=== PATIENT | male | born 1980 | race Caucasian/White ===

== ENCOUNTER 2020-10-16 11:19 | Outpatient (NON) | payer OTHER, SELFPAY ==
[2020-10-17 20:04] LABS: SARS-CoV-2 RNA PCR Positive
== END 2020-10-16 11:20 ==
PROVIDERS: Visit Provider Family Medicine Adolescent Medicine
DX: U07.1 COVID-19 (principal)
CPT/HCPCS: 87635; C9803; U0003

== ENCOUNTER 2021-11-29 15:25 | Emergency (ER) | payer OTHER, SELFPAY ==
--- NOTE | ~2021-11-29 | XR_ITS ---
EXAMINATION: XR finger 5th RT min 2V INDICATION: Right fifth finger pain, initial encounter TECHNIQUE: Three views of the right fifth finger are obtained. COMPARISON: None available FINDINGS: There is an acute, traumatic, comminuted tuft fracture of the fifth distal phalanx. Given t he appearance of the fracture, open fracture should be considered. There is also a questionable fract ure at the dorsomedial base of the fifth distal phalanx extending to the distal interphalangeal joint . There is soft tissue swelling of the fifth finger. IMPRESSION: 1. Comminuted, possibly open, tuft fracture of the fifth distal phalanx. Possible tiny fracture at th e dorsomedial base of the fifth distal phalanx. Reviewed, dictated and finalized at location [facility] [employer] IMPRESSION: 1. Comminuted, possibly open, tuft fracture of the fifth distal phalanx. Possib le tiny fracture at the dorsomedial base of the fifth distal phalanx.
[2021-11-29 15:27] VITALS: BP 160/89; PULSE 84; RESP 16; TEMP 36.3; O2SAT 98
--- NOTE | 2021-11-29 16:17 | ED.GENADULT ---
HPI - General Adult General Chief complaint: Wound/Laceration Stated complaint: finger lac Time Seen by Provider: 11/29/21 15:43 Source: patient Mode of arrival: ambulatory Limitations: no limitations History of Present Illness HPI narrative: Patient presents for evaluation of injury to the fifth digit of the right hand. He indicates he was at a drive-through around 1330 today. When he picked his food up he realized he was missing some food. He attempted to walk into the establishment but the doors were locked. He walked back up to the drive-through window and got into a verbal altercation with the employee. The employee attempted to close the window. Patient attempted to intervene and got the fifth digit of his right hand caught in the window. Reports of bleeding from the digit. States that his pain is moderate in severity, without descriptive quality. He reports a tingling sensation in the affected digit. Date of last tetanus 10 years ago. He is not diabetic. He does not smoke. Related Data Home Medications Medication Instructions Recorded Confirmed lisinopril 11/29/21 Allergies Allergy/AdvReac Type Severity Reaction Status Date / Time No Known Allergies Allergy Verified 11/29/21 15:26 Review of Systems Review of Systems: CONSTITUTIONAL: Denies fever, chills, or sweats. EYES: Denies visual changes, redness, or discharge. ENT: Denies rhinorrhea, congestion, sore throat, or otalgia. CARDIOVASCULAR: Denies chest pain, palpitations, or edema. RESPIRATORY: Denies cough or dyspnea. GASTROINTESTINAL: Denies abdominal pain, nausea, vomiting, or diarrhea. GENITOURINARY: Denies dysuria or hematuria. SKIN: Reports wound to the fifth digit of the right hand. Denies rash or itching. MUSCULOSKELETAL: Reports pain in the fifth digit of the right hand NEUROLOGIC: Denies headache, numbness, dizziness, or weakness. PSYCHIATRIC: Denies anxiety or depression. [facility] Past Medical History Medical History (Updated 11/29/21 @ 18:19 by Rahul Waggoner, OSMIN, JER[place]) Hypertension Surgical History Surgical History History of appendectomy Family History Family History Mother No pertinent past medical history Social History Social History (Updated 11/29/21 @ 16:21 by Rahul Waggoner, [facility], ) Smoking status: Never smoker Alcohol intake: current Alcohol use details: social Substance use: never Living arrangements: with family Gender identity (if verbalized by the patient): Male Sexual Orientation (if Verbalized by the Patient): Straight or Heterosexual Spiritual care concerns: No Exam Narrative: GENERAL: Well-appearing, well-nourished, and in no acute distress. HEAD: Normocephalic, atraumatic. EYES: PERRLA and EOMI. ENT: Nares clear, no rhinorrhea or epistaxis. Mucous membranes moist. Oropharynx without tonsillar hypertrophy exudate or other lesions. Bilateral TMs pearly vital nonbulging NECK: Supple. No adenopathy or masses. No carotid bruits or JVD CHEST: Clear to auscultation. No respiratory distress. No wheezes rales or rhonchi HEART: Regular rate and rhythm. No murmur heard. Normal peripheral pulses. ABDOMEN: Soft, nontender, nondistended, normal active bowel sounds. EXTREMITIES: Normal range of motion. No edema. SKIN: There is a 1.5 cm linear laceration to the palmar aspect of the distal phalanx of the fifth digit of the right hand with exposed fat tissue. Nailplate of 5th digit of right hand is partially avulsed from base of nailbed. There is an approximately 1.2 cm laceration extending from the base of the nailplate of the 5th digit of the dorsal apect of right hand extending proximally. There is avulsion of dermis surrounding this laceration. NEURO: No focal deficits. Alert and oriented x3. PSYCH: Normal mood and affect. Course Course Emergency Course: This is a
[2021-11-29] MEDS: LIDOCAINE HCL 1% LOCAL INJ 20 ML VIAL 10 ML INFILTRATE (18:21)
[2021-11-29] MEDS: TETANUS,DIPHTHERIA,AC PERTUSSIS ADULT (0.5 ML) BOOSTRIX IM (18:21)
[2021-11-29] MEDS: NEOMYCIN/POLYMYXIN/BACITRACIN OINTMENT 15 GM TUBE 1 APPLIC TOPICAL (18:33)
== END 2021-11-29 18:33 | disposition home or self-care (01) ==
PROVIDERS: Emergency Provider Nurse Practitioner; PCP Family Medicine Adolescent Medicine
DX: S62.666B Nondisplaced fracture of distal phalanx of right little finger, initial encounter for open fracture (principal); Z23 Encounter for immunization; I10 Essential (primary) hypertension; W23.0XXA Caught, crushed, jammed, or pinched between moving objects, initial encounter
CPT/HCPCS: 12002; 29130; 73140; 90471; 90715; 99284; A9270

== ENCOUNTER 2025-01-12 00:53 | Day surgery (SDC) | payer OTHER, SELFPAY ==
[2025-01-05 14:58] VITALS: BMI 40.3
--- OUTSIDE RECORDS SUMMARY | 2025-01-12 00:55 | XMS_ITS | Clinical Summary ---
Author Organization [facility] [facility] Address [address] [place] [id number] Care Team Providers Care Bridge Maintainer Name Role Phone Morales Pearl MD Primary Care Provider [phone] Social History Tobacco Use Types Packs/Day Years Used Date Smoking Tobacco: Never Assessed Sex and Gender Information Value Date Recorded Sex Assigned at Not on file Legal Sex Male 9:49 PM CDT Gender Identity Not on file Sexual Orientation Not on file Plan of Treatment Health Maintenance Due Date Last Done Comments DTAP/TDAP/TD VACCINES (1 - Tdap) 2000 HEPATITIS B VACCINES (1 of 3 - 19+ 3-dose series) 2000 INFLUENZA VACCINE (#1) 2024 HPV VACCINES Aged Out No longer eligi ble based on patient's age to complete this topic PNEUMOCOCCAL VACCINE 0-49 YEARS Aged Out No longer eligible based on patient's age to complete this topic Care Teams Bridge Maintainer Relationship Specialty Start Date End Date Morales Pearl MD [address] [id number] PCP - General Family Practice 10/13/18
[2025-01-12 12:11] VITALS: BP 158/87; PULSE 62; RESP 18; TEMP 36.4; O2SAT 100
[2025-01-12 12:13] VITALS: BMI 40.4
[2025-01-12] MEDS: LACTATED RINGERS 1,000 ML 150 ML IV CONT (12:30)
--- NOTE | 2025-01-12 12:31 | WPDANESEPPF ---
Anes - Initial Pre Proc Eval Procedure: Operation Date: 01/12/25 13:30 Proposed Procedures p Esophagogastroduodenoscopy - Stephen Garcia MD Date/Time: 01/12/25 12:31 Surgeon: Stephen Garcia MD Pre Op Diagnosis: Heartburn, Right upper quadrant pain, Melena Patient Data Age: 44 Gender: M Height: 1.73 m Weight: 120.7 kg Last Vital Signs Temp 97.6 F 01/12/25 12:11 Pulse 62 01/12/25 12:11 Resp 18 01/12/25 12:11 BP 158/87 H 01/12/25 12:11 Pulse Ox 100 01/12/25 12:11 O2 Del Method Room Air 01/12/25 12:11 Allergies Allergy/AdvReac Type Severity Reaction Status Date / Time No Known Allergies Allergy Verified 01/12/25 12:09 Home Medications ?Medication ?Instructions ?Recorded ?Confirmed ?Type lisinopril 40 mg tablet 40 mg PO DAILY #90 tabs 10/22/24 01/12/25 Rx omeprazole 40 mg capsule,delayed 40 mg PO DAILY 8 weeks #56 caps 01/02/25 01/12/25 Rx release atorvastatin 40 mg tablet (Lipitor) 40 mg PO QHS #90 tabs 01/12/25 01/12/25 Rx Patient hx anesthesia problems: none Family hx anesthesia problems: none Results Review: All pre-operative results and documents have been reviewed as part of the pre-operative evaluation. [facility] Past Medical History Medical History Hypertension Surgical History Surgical History History of appendectomy Family History Family History Mother No pertinent past medical history Social History Social History Smoking status: Never smoker Second hand tobacco smoke exposure: No Alcohol intake: current Alcohol use details: social Substance use: never Substance use type: does not use Lack of Transportation: No Lack of Food: Never True Current Housing: I Have Housing Concerned About Future Housing: No Difficulty Paying Gas/Electric Bills: No Difficulty Paying for Meds: No Currently Unemployed: No Education: Associate Degree Difficulty w/ Childcare or Family Care: No Living arrangements: with family Occupation/Education: occupation Gender identity (if verbalized by the patient): Male Sexual Orientation (if Verbalized by the Patient): Straight or Heterosexual Spiritual care concerns: No Anes - Eval Final PreProcedure Day of Procedure 01/12/25 12:31 Patient weight: obese Lungs: normal air movement Airway: Mallampati scale class II Neurological: alert and oriented Last oral intake: >/= 8 hours ASA classification: III Emergent: no Anesthetic plan: proceed Anesthesia type and monitoring: general GIVS and standard monitoring Results Review: All pre-operative results and documents have been reviewed as part of the pre-operative evaluation. HTN, hyperlipidemia, preDM, pt w RUQ pain for EGD. Informed Consent: The patient's anesthetic plan and its attendant risks and benefits were discussed with the patient/family/POA. Questions were solicited and answers provided to the satisfaction of the patient/family/POA.
--- NOTE | 2025-01-12 13:24 | PM.HPGS ---
History of Present Illness History of Present Illness Consent: Risks, benefits, and alternatives have been discussed and questions answered. Patient agrees to proceed with procedure. Chief complaint: Heartburn, Right upper quadrant pain, Melena Narrative: Zach Andrade Jr. is a 44 year old male with intermittent ruq, recent cbc and cmp no major findings. Here for first EGD. Review of Systems Review of Systems: All systems reviewed & are unremarkable except as noted in HPI and below PMFSH Past Medical History Medical History Hypertension Surgical History Surgical History History of appendectomy Family History Family History Mother No pertinent past medical history Social History Social History Smoking status: Never smoker Second hand tobacco smoke exposure: No Alcohol intake: current Alcohol use details: social Substance use: never Substance use type: does not use Lack of Transportation: No Lack of Food: Never True Current Housing: I Have Housing Concerned About Future Housing: No Difficulty Paying Gas/Electric Bills: No Difficulty Paying for Meds: No Currently Unemployed: No Education: Associate Degree Difficulty w/ Childcare or Family Care: No Living arrangements: with family Occupation/Education: occupation Gender identity (if verbalized by the patient): Male Sexual Orientation (if Verbalized by the Patient): Straight or Heterosexual Spiritual care concerns: No Meds Home Medications and Allergies Home Medications ?Medication ?Instructions ?Recorded ?Confirmed ?Type lisinopril 40 mg tablet 40 mg PO DAILY #90 tabs 10/22/24 01/12/25 Rx omeprazole 40 mg capsule,delayed 40 mg PO DAILY 8 weeks #56 caps 01/02/25 01/12/25 Rx release atorvastatin 40 mg tablet (Lipitor) 40 mg PO QHS #90 tabs 01/12/25 01/12/25 Rx Allergies Allergy/AdvReac Type Severity Reaction Status Date / Time No Known Allergies Allergy Verified 01/12/25 12:09 Vital Signs Vital Signs - 24 hr 01/12/25 12:11 Temperature 97.6 F Pulse Rate 62 Respiratory Rate 18 Blood Pressure 158/87 H Pulse Oximetry 100 Oxygen Delivery Room Air Exam Const: General: comfortable and no acute distress HENMT: Face/Nose/Sinus: Normal nares present Eyes: General: appearance normal, both eyes and all related structures Neck: Neck: no JVD Resp: Auscultation: clear to auscultation bilaterally Cardio: Rate: regular rate Rhythm: regular rhythm GI: Inspection: non-distended GI Palp: Yes Soft to palpation Skin: General skin exam: normal color Neuro: General: gait normal Speech: normal speech Extrem: General: normal to inspection Psych: Mental Status: mental status grossly normal Assessment and Plan Assessment and plan (1) RUQ abdominal pain: Code(s): R10.11 - Right upper quadrant pain Status: Acute (2) Heartburn: Code(s): R12 - Heartburn Status: Acute Assessment and Plan: recently prescribe omeprazole
[2025-01-12 13:36] VITALS: BP 130/75; PULSE 88; RESP 21; O2SAT 100
[2025-01-12 13:46] VITALS: BP 131/80; PULSE 75; RESP 21; O2SAT 100
[2025-01-12 13:56] VITALS: BP 127/81; PULSE 66; RESP 18; O2SAT 97
== END 2025-01-12 14:08 | disposition home or self-care (01) ==
PROVIDERS: PCP Family Medicine Adolescent Medicine; Referring Provider Nurse Practitioner Family; Visit Provider Internal Medicine Gastroenterology
PROC: 0DJ08ZZ Inspection of Upper Intestinal Tract, Via Natural or Artificial Opening Endoscopic (ICD-10-PCS; CPT 43239; principal; 2025-01-12 13:30)
DX: K21.9 Gastro-esophageal reflux disease without esophagitis (principal); K29.70 Gastritis, unspecified, without bleeding; K27.9 Peptic ulcer, site unspecified, unspecified as acute or chronic, without hemorrhage or perforation; I10 Essential (primary) hypertension; E66.9 Obesity, unspecified; Z68.41 Body mass index [BMI] 40.0-44.9, adult; Z98.890 Other specified postprocedural states
CPT/HCPCS: 43239; 88305; J2704; J7120